=== PATIENT | male | born 1960 | race Caucasian/White ===

== ENCOUNTER 2017-02-05 21:33 | Emergency (ER) | payer SELFPAY ==
[~2017-02-05] VITALS: Ht 185.4 cm; Wt 70.5 kg
[2017-02-05 21:42] VITALS: BP 118/69
== END 2017-02-05 21:44 ==
LOC: EME 21:33
DX: F10.129 Alcohol abuse with intoxication, unspecified (principal)
CPT/HCPCS: 99281; 99282